=== PATIENT | female | born 1985 ===

== ENCOUNTER 2024-06-26 12:30 | Day surgery (SDC) | payer OTHER ==
[2024-06-19 08:24] VITALS: BP 120/83
[2024-06-19 08:24] LABS: HEMOGLOBIN 12.5 g/dL (12.0-15.00); MEAN CELL VOLUME 81.2 fL (80.00-100.00); MEAN CORPUSCULAR HEMOGLOBIN 27.4 pg (27.00-32.0); MEAN CORPUSCULAR HGB CONC 33.8 g/dl (32.0-36.0); PLATELET COUNT 444 K/uL (150-450); RED BLOOD COUNT 4.56 M/uL (4.00-6.00); RED CELL DISTRIBUTION WIDTH 13.1 % (11.5-14.5)
[2024-06-19 09:16] LABS: INR 0.95; PARTIAL THROMBOPLASTIN TIME 23.7 SECONDS (22.0-34.0); PROTHROMBIN TIME 10.4 SECONDS (9.0-11.5)
[2024-06-19 09:27] LABS: ALBUMIN 3.8 gm/dL (3.4-5.0); BILIRUBIN TOTAL 0.68 mg/dL (0.3-1.2); CALCIUM 9.4 mg/dL (8.5-10.1); CREATININE SERUM 0.39 mg/dL (0.55-1.02); GFR 181.11; GLOBULINA 3.4 G/DL (2.4-3.5); POTASSIUM 3.7 mEq/L (3.5-5.1); TOTAL PROTEIN 7.2 gm/dL (6.4-8.2)
[2024-06-19 09:39] LABS: URINE APPEARANCE Clear; URINE BILIRRUBIN Negative (NEGATIVE); URINE BLOOD Negative; URINE COLOR Yellow; URINE GLUCOSE Negative (NEGATIVE); URINE KETONE Negative (NEGATIVE); URINE LEUKOCYTE Negative; URINE NITRATE Negative; URINE PROTEIN Negative (NEGATIVE); URINE UROBILINOGEN 0.2 E.U./dl
[2024-06-19 09:41] LABS: URINE BACTERIA 85.6 uL (0.0-1933); URINE EPITHELIAL CELLS 8.5 uL (0.0-38.8); URINE RBC 4.1 uL (0.0-20.8); URINE WBC 4.8 uL (0.0-23.2)
[~2024-06-26] VITALS: Ht 165.1 cm; Wt 66.2 kg
[2024-06-26] MEDS ORDERED: MORPHINE SULFATE 4 MG/ML VIAL IV PRN (22:00)
[2024-06-26] MEDS ORDERED: CEFOXITIN SODIUM 2,000 MG VIAL IV ONE (22:00)
[2024-06-26] MEDS ORDERED: POVIDONE-IODINE 118 ML BOTT TOP ONE (22:00)
[2024-06-26] MEDS ORDERED: PROMETHAZINE HCL 50 MG/ML AMPUL IM ONE (22:00)
== END 2024-06-27 00:40 | disposition home or self-care (01) ==
LOC: CIR.AMB 12:30 → O/R 12:30 → CIR.AMB 06-27 00:40
PROVIDERS: ATTEND Obstetrics & Gynecology Obstetrics
DX: N93.8 Other specified abnormal uterine and vaginal bleeding (principal)